=== PATIENT | male | born 1980 | race Caucasian/White ===

== ENCOUNTER 2017-05-30 18:49 | Emergency (ER) | payer SELFPAY ==
[2017-05-30 18:58] VITALS: BP 153/106; PULSE 113; TEMP 98.3; BMI 30.7
--- NOTE | 2017-05-30 18:59 | PDOC ---
Rapid Medical Evaluation Time Seen by Provider: 05/30/17 18:54 Medical Evaluation: I have performed a brief in-person evaluation of this patient. The patient presents with a chief complaint of: sore throat x 3 days. tactile fever yesterday Pertinent physical exam findings: b/l erythematous tonsils with b/l exudate. I have ordered the following: Will send rx for PenVK to his pharmacy. Instructed him to take the entire 10 day course. Also suggested he gargle with warm salt water and take Motrin for pain. The patient will proceed to the ED for further evaluation. Discharge Disposition - Diagnosis Strep pharyngitis - Discharge Dispostion Disposition: HOME Condition at time of disposition: Good - Referrals - Patient Instructions Printed Discharge Instructions: DI for Strep Throat Print Language: [place] - Post Discharge Activity
== END 2017-05-30 19:15 | disposition home or self-care (01) ==
LOC: JERFT 18:49
DX: J02.0 Streptococcal pharyngitis (principal); B95.5 Unspecified streptococcus as the cause of diseases classified elsewhere
CPT/HCPCS: 99281-25

== ENCOUNTER 2017-10-17 16:47 | Emergency (ER) | payer OTHER ==
[2017-10-17 16:53] VITALS: BP 147/79; PULSE 93; TEMP 98.5; BMI 32.5
--- NOTE | 2017-10-17 16:54 | PDOC ---
Rapid Medical Evaluation Time Seen by Provider: 10/17/17 16:51 Medical Evaluation: Allergies Allergy/AdvReac Type Severity Reaction Status Date / Time No Known Allergies Allergy Verified 05/30/17 18:58 10/17/17 16:51 I have performed a brief in-person evaluation of this patient. The patient presents with a chief complaint of: cough w/ pleuritic CP and congestion x 4 days. No f/c. No pmhx, Non smoker, no illicit drugs Pertinent physical exam findings:stable w/ clear chest/lungs I have ordered the following:cxr The patient will proceed to the ED for further evaluation. Discharge Disposition - Diagnosis Cough - Referrals - Patient Instructions - Post Discharge Activity
[2017-10-17] MEDS: ALBUTEROL SO4 2.5/IPRATROPIUM 0.5 INH SOL 3 ML VIAL.NEB. NEB SCH ×4 (17:36→18:40)
--- NOTE | 2017-10-17 17:39 | PDOC ---
History of Present Illness - General Chief Complaint: Cold Symptoms Stated Complaint: CHEST PAIN/ COLD SYMPTOMS Time Seen by Provider: 10/17/17 16:51 - History of Present Illness Initial Comments: 37-year-old male with nonproductive cough 3 days. Subjective fever at home. No past medical history no medical problems NO KNOWN DRUG ALLERGIES. He also has associated chest tightness with coughing 10/17/17 17:36 Past History - Past Medical History Allergies/Adverse Reactions: Allergies Allergy/AdvReac Type Severity Reaction Status Date / Time No Known Allergies Allergy Verified 10/17/17 16:53 Home Medications: Ambulatory Orders Albuterol Sulfate Inhaler - [Ventolin HFA Inhaler -] 1 - 2 inh PO Q4H #1 inhaler 10/17/17 Azithromycin [Zithromax -] 250 mg PO DAILY #8 tablet 10/17/17 Guaifenesin [Robitussin] 5 ml PO HS #30 ml 10/17/17 COPD: No - Suicide/Smoking/Psychosocial Hx Smoking History: Never smoked Information on smoking cessation initiated: No Hx Alcohol Use: No Drug/Substance Use Hx: No Review of Systems - Review of Systems Comments:: GENERAL/CONSTITUTIONAL: No fever or chills. No weakness. No weight change. HEAD, EYES, EARS, NOSE AND THROAT: No change in vision. No ear pain or discharge. No sore throat. CARDIOVASCULAR: + chest pain and shortness of breath. RESPIRATORY: + cough, no wheezing, or hemoptysis. GASTROINTESTINAL: No nausea, vomiting, diarrhea or constipation. No rectal bleeding. GENITOURINARY: No dysuria, frequency, or change in urination. MUSCULOSKELETAL: No joint or muscle swelling or pain. No neck or back pain. SKIN AND BREASTS: No rash or easy bruising. NEUROLOGIC: No headache, vertigo, loss of consciousness, or loss of sensation. PSYCHIATRIC: No depression or anxiety. ENDOCRINE: No increased thirst. No abnormal weight change. HEMATOLOGIC/LYMPHATIC: No anemia, easy bleeding, or history of blood clots. ALLERGIC/IMMUNOLOGIC: No hives or skin allergy. No latex allergy. 10/17/17 17:37 *Physical Exam - Vital Signs Last Vital Signs Temp Pulse Resp BP Pulse Ox 98.5 F 93 H 20 147/79 98 10/17/17 16:51 10/17/17 16:51 10/17/17 16:51 10/17/17 16:51 10/17/17 16:51 - Physical Exam Comments: GENERAL: The patient is awake, alert, and fully oriented, in no acute distress. HEAD: Normal with no signs of trauma. EYES: Pupils equal, round and reactive to light, extraocular movements intact, sclera anicteric, conjunctiva clear. ENT: Ears normal, nares patent, oropharynx clear without exudates. Moist mucous membranes. NECK: Normal range of motion, supple without lymphadenopathy, JVD, or masses. LUNGS: He has coarse rhonchi and wheezing in both lung mcneill. HEART: Regular rate and rhythm, normal S1 and S2 without murmur, rub or gallop. ABDOMEN: Soft, nontender, normoactive bowel sounds. No guarding, no rebound. No masses. EXTREMITIES: Normal range of motion, no edema. No clubbing or cyanosis. No cords, erythema, or tenderness. NEUROLOGICAL: Cranial nerves II through XII grossly intact. Normal speech, normal gait. PSYCH: Normal mood, normal affect. SKIN: Warm, Dry, normal turgor, no rashes or lesions noted. 10/17/17 17:38 Medical Decision Making - Medical Decision Making 37-year-old male with most likely bronchitis with an asthma component. I will give him DuoNeb is an steroids and have him follow-up with his PCP this may be viral versus ALLERGIC. 10/17/17 17:38 10/17/17 19:00 After the fourth DuoNeb treatment his wheezing has resolved. He does have some mild rhonchi at the left base. My plan is to treat him for asthma. He is gotten steroid here I will send him home with the pump, cough syrup, as well as a Z- Sincere with close follow-up. He does not have a primary care I will recommend one. *DC/Admit/Observation/Transfer Diagnosis at time of Disposition: Cough - Discharge Dispostion Disposition: HOME Condition at time of disposition: Improved Decision to Admit order: No - Referrals Referrals: Greg Wolfe MD [Staff Physician] - - Patient Instructions Printed Discharge Instructions: DI for Acute Bronchitis, DI for Asthma -- Adult , Asthma -- Adult Additional Instructions: Return to the emergency room if your symptoms worsen or go unresolved prior to follow-up with the primary care physician I recommended for you. Finish all the antibiotics as prescribed. Take the cough syrup at night prior to bedtime. And the albuterol pump if you feel short of breath or you start to wheeze. He was given a dose of steroids in the emergency room which should help your breathing. Print Language: [place]AL[place] - Post Discharge Activity
[2017-10-17] MEDS ORDERED: DEXAMETHASONE 4 MG TABLET (FP) PO ONE (17:45)
[2017-10-17] MEDS ORDERED: ALBUTEROL SO4 2.5/IPRATROPIUM 0.5 INH SOL 3 ML VIAL.NEB. NEB ONE ×3 (17:45→18:35)
[2017-10-17] MEDS ORDERED: DEXAMETHASONE SOD PHOSPHATE 10 MG/1 ML VIAL ONE (17:48)
== END 2017-10-17 19:11 | disposition home or self-care (01) ==
LOC: JERFT 16:47
PROC: 3E0F7GC Introduction of Other Therapeutic Substance into Respiratory Tract, Via Natural or Artificial Opening (ICD-10-PCS; principal; 2017-10-17)
DX: R05 Cough (principal)
CPT/HCPCS: 71046-TC-FY; 99281-25; J7620

== ENCOUNTER 2018-07-06 18:05 | Emergency (ER) | payer OTHER ==
[2018-07-06 18:09] VITALS: BP 144/96; PULSE 87; TEMP 98.4; BMI 29.4
[2018-07-06] MEDS ORDERED: DEXAMETHASONE LIQUID 0.5 MG/5 ML 240 ML BULK BOTTLE PO ONE (18:34)
[2018-07-06] MEDS ORDERED: DEXAMETHASONE SOD PHOSPHATE 10 MG/1 ML VIAL ONE (18:36)
--- NOTE | 2018-07-06 18:37 | PDOC ---
History of Present Illness - General Chief Complaint: Respiratory Stated Complaint: COLD SYMPTOMS Time Seen by Provider: 07/06/18 18:30 - History of Present Illness Initial Comments: 07/06/18 18:36 37-year-old male presents for evaluation of sore throat 3 days with difficulty swallowing and drinking Past History - Past Medical History Allergies/Adverse Reactions: Allergies Allergy/AdvReac Type Severity Reaction Status Date / Time No Known Allergies Allergy Verified 07/06/18 18:09 Home Medications: Ambulatory Orders NK [No Known Home Medication] 07/06/18 COPD: No - Suicide/Smoking/Psychosocial Hx Smoking History: Never smoked Hx Alcohol Use: No Drug/Substance Use Hx: No Review of Systems - Review of Systems Constitutional: No: Fever HEENTM: Yes: Throat Pain *Physical Exam - Vital Signs Last Vital Signs Temp Pulse Resp BP Pulse Ox 98.4 F 87 18 144/96 96 07/06/18 18:07 07/06/18 18:07 07/06/18 18:07 07/06/18 18:07 07/06/18 18:07 - Physical Exam Comments: 07/06/18 18:37 HEAD: NC/AT EYES: Conjuntiva clear Ears: Canals and TM's normal NOSE: No d/c THROAT: Moist mucous membrances, oral pharanx erythematous, uvula midline NECK: Supple without adenopathy CARDIAC: S1 S2 LUNGS: CTA Full and Equal breath sounds ABDOMEN: Soft NT ND MS: Full ROM in all joints without edema NEUROLOGIC: No gross sensory or motor deficits, NVID SKIN: Normal color and temperature no lesions or rashes Moderate Sedation - Procedure Monitoring Vital Signs: Procedure Monitoring Vital Signs Temperature 98.4 F 07/06/18 18:07 Pulse Rate 87 07/06/18 18:07 Respiratory Rate 18 07/06/18 18:07 Blood Pressure 144/96 07/06/18 18:07 O2 Sat by Pulse Oximetry (%) 96 07/06/18 18:07 Medical Decision Making - Medical Decision Making 07/06/18 18:59 Will treat based on symptoms and exam as well as history *DC/Admit/Observation/Transfer Diagnosis at time of Disposition: Strep pharyngitis - Discharge Dispostion Disposition: HOME Condition at time of disposition: Stable Decision to Admit order: No - Referrals Referrals: Ross Schmid MD [Non Staff, Medical] - - Patient Instructions Printed Discharge Instructions: DI for Strep Throat, Strep Throat Additional Instructions: Return to the emergency room should symptoms worsen or go unresolved. Based on her history and symptoms as well as her exam it appears you have strep throat although your rapid strep was negative. Return to the emergency room should symptoms worsen or go unresolved follow-up with internal medicine one to 2 days for further evaluation and treatment options. Avoid Advil Motrin Aleve or ibuprofen he may take Tylenol if you need for pain. Warm salt water gargles 5-6 times a day will help with your throat pain. - Post Discharge Activity
[2018-07-06] MEDS ORDERED: PENICILLIN G BENZATHINE 1,200,000 UNIT/2 ML PFS IM ONE (18:58)
[2018-07-06] MEDS ORDERED: PENICILLIN G BENZATHINE 2,400,000 UNIT/4 ML PFS ONE (19:01)
== END 2018-07-06 19:40 | disposition home or self-care (01) ==
LOC: JERFT 18:05
DX: J02.0 Streptococcal pharyngitis (principal); B95.5 Unspecified streptococcus as the cause of diseases classified elsewhere
CPT/HCPCS: 87070; 87077; 87880; 96372; 99281-25

== ENCOUNTER 2020-06-03 20:45 | Inpatient (IN) | payer OTHER ==
[2020-06-03] MEDS ORDERED: SODIUM CHLORIDE 0.9% 500 ML INFUS.BAG IV ONE (22:58)
[2020-06-03] MEDS ORDERED: ACETAMINOPHEN 1000 MG/100 ML VIAL (NON FORMULARY) IVPB ONE (22:58)
[2020-06-03] MEDS ORDERED: AZITHROMYCIN IVPB 500 MG in DEXTROSE 5%-WATER - 250 ML IVPB ONE (23:53)
[2020-06-03] MEDS ORDERED: CEFTRIAXONE 1,000 MG in DEXTROSE 5%-WATER - 50 ML IVPB ONE (23:53)
[2020-06-03 23:54] LABS: BASO % 0.2 % (0-2.0); HEMATOCRIT 44.7 % (35.4-49); HEMOGLOBIN 15.2 GM/dL (11.7-16.9); LYMPH % 19.8 % (8-40); MCH 30.9 pg (25.7-33.7); MCHC 33.9 g/dl (32.0-35.9); MEAN CELL VOLUME 91.1 fl (80-96); MEAN PLT VOLUME 9.4 fl (7.5-11.1); MONO % 7.1 % (3.8-10.2); NEUT % 72.9 % (42.8-82.8); PLATELET COUNT 247 K/MM3 (134-434); RBC 4.91 M/mm3 (4.00-5.60); RDW 13.5 % (11.9-15.9); WHITE BLOOD COUNT 6.6 K/mm3 (4.0-10.0)
[2020-06-04] LABS: CHLORIDE 102 mmol/L (98-107); INR 1.12 (0.83-1.09); POTASSIUM 4.7 mmol/L (3.5-5.1); PROTHROMBIN TIME (PATIENT) 13.5 SEC (9.7-13.0); SODIUM 138 mmol/L (136-145)
[2020-06-04 00:02] LABS: ACTIVATED PTT 37.7 SECONDS (25.2-36.5); CALCIUM 8.2 mg/dL (8.5-10.1)
[2020-06-04 00:03] LABS: ALBUMIN 3.6 g/dl (3.4-5.0); ANION GAP 8 MMOL/L (8-16); BLOOD UREA NITROGEN 10.6 mg/dL (7-18); CO2 28 mmol/L (21-32); GLUCOSE,RANDOM 108 mg/dL (74-106)
[2020-06-04 00:04] LABS: BILIRUBIN,DIRECT 0.1 mg/dL (0.0-0.2)
[2020-06-04 00:06] LABS: SGOT/AST 27 U/L (15-37); SGPT/ALT 28 U/L (13-61)
[2020-06-04 00:07] LABS: BILIRUBIN,TOTAL 0.3 mg/dL (0.2-1); TOT PROT 7.9 g/dl (6.4-8.2)
[2020-06-04 00:08] LABS: ALK PHOS 93 U/L (45-117)
[2020-06-04] MEDS ORDERED: AZITHROMYCIN IVPB 500 MG/250 ML BAG IVPB ONE (00:30)
[2020-06-04] MEDS ORDERED: ACETAMINOPHEN INJECTION 100 ML IVPB ONE (00:30)
[2020-06-04] MEDS ORDERED: CEFTRIAXONE 1 GM/50 ML BAG ONE (00:30)
[2020-06-04] MEDS ORDERED: METOCLOPRAMIDE HCL INJECTION 10 MG/2 ML VIAL IVPB ONE (00:35)
[2020-06-04] MEDS ORDERED: METOCLOPRAMIDE HCL INJECTION 10 MG/2 ML VIAL ONE (01:00)
[2020-06-04] MEDS ORDERED: DEXAMETHASONE SOD PHOSPHATE 4 MG/1 ML VIAL IVPUSH ONE (01:46)
[2020-06-04] MEDS ORDERED: DEXAMETHASONE SOD PHOSPHATE 10 MG/1 ML VIAL ONE (02:21)
[2020-06-04 02:57] LABS: EPI CELLS 8 /uL (0-25.1); HYALINE CASTS 9 /uL (0-3.1); URINE APPEARANCE TURBID; URINE BACTERIA 170 /uL (0-1359); URINE BILIRUBIN NEGATIVE (NEGATIVE); URINE COLOR YELLOW; URINE GLUCOSE (UA) NEGATIVE (NEGATIVE); URINE KETONE 3+ (NEGATIVE); URINE LEUK ESTERASE NEGATIVE (NEGATIVE); URINE NITRITE NEGATIVE (NEGATIVE); URINE PROTEIN 2+ (NEGATIVE); URINE RBC 4 /uL (0-23.9); URINE UROBILINOGEN 0.2 mg/dL (0.2-1.0); URINE WBC 2 /uL (0-25.8)
[2020-06-04] MEDS: MELATONIN 5 MG TABLETS PO PRN (05:02)
[2020-06-04 07:16] LABS: BASO % 0.3 % (0-2.0); HEMATOCRIT 43.3 % (35.4-49); HEMOGLOBIN 14.6 GM/dL (11.7-16.9); LYMPH % 15.8 % (8-40); MCH 30.7 pg (25.7-33.7); MCHC 33.6 g/dl (32.0-35.9); MEAN CELL VOLUME 91.4 fl (80-96); MEAN PLT VOLUME 9.8 fl (7.5-11.1); MONO % 4.1 % (3.8-10.2); NEUT % 79.8 % (42.8-82.8); PLATELET COUNT 244 K/MM3 (134-434); RBC 4.74 M/mm3 (4.00-5.60); RDW 13.2 % (11.9-15.9); WHITE BLOOD COUNT 6.1 K/mm3 (4.0-10.0)
[2020-06-04 07:43] LABS: POTASSIUM 4.9 mmol/L (3.5-5.1)
[2020-06-04 07:48] LABS: CALCIUM 7.8 mg/dL (8.5-10.1)
[2020-06-04 07:49] LABS: ALBUMIN 3.4 g/dl (3.4-5.0); BLOOD UREA NITROGEN 10.6 mg/dL (7-18)
[2020-06-04 07:52] LABS: CREATININE 0.9 mg/dL (0.55-1.3)
[2020-06-04 07:53] LABS: BILIRUBIN,TOTAL 0.4 mg/dL (0.2-1); TOT PROT 7.5 g/dl (6.4-8.2)
[2020-06-04 09:03] LABS: MAGNESIUM 2.5 mg/dL (1.8-2.4)
[2020-06-04] MEDS ORDERED: ASCORBIC ACID 500 MG TABLET (FP) ONE ×2 (10:11→23:38)
[2020-06-04] MEDS ORDERED: ENOXAPARIN NA (PORCINE) 40 MG/0.4 ML DISP.SYRIN SQ ONE (10:11)
[2020-06-04] MEDS ORDERED: ZINC SULFATE 220 MG CAPSULE (FP) ONE (10:11)
[2020-06-04] MEDS ORDERED: CHOLECALCIFEROL (VIT D3) 1,000 UNIT (25 MCG) TABLET ONE (10:11)
[2020-06-04] MEDS: ZINC SULFATE 220 MG CAPSULE (FP) PO SCH (10:30)
[2020-06-04] MEDS: ENOXAPARIN NA (PORCINE) 40 MG/0.4 ML DISP.SYRIN SQ SCH (10:30)
[2020-06-04] MEDS: ASCORBIC ACID 500 MG TABLET (FP) PO SCH ×2 (10:31→23:43)
[2020-06-04] MEDS: CHOLECALCIFEROL (VIT D3) 1,000 UNIT (25 MCG) TABLET PO SCH (10:31)
[2020-06-04] MEDS ORDERED: ACETAMINOPHEN 325 MG TABLET (FP) ONE ×2 (17:07→23:38)
[2020-06-04] MEDS: ACETAMINOPHEN 325 MG TABLET (FP) PO PRN ×2 (17:12→23:43)
[2020-06-05] MEDS: MELATONIN 5 MG TABLETS PO PRN (04:16)
[2020-06-05] MEDS: ACETAMINOPHEN 325 MG TABLET (FP) PO PRN ×3 (04:23→22:26)
[2020-06-05 08:26] LABS: BASO % 0.3 % (0-2.0); HEMATOCRIT 40.3 % (35.4-49); HEMOGLOBIN 13.9 GM/dL (11.7-16.9); LYMPH % 20.4 % (8-40); MCH 30.9 pg (25.7-33.7); MCHC 34.6 g/dl (32.0-35.9); MEAN CELL VOLUME 89.5 fl (80-96); MEAN PLT VOLUME 9.4 fl (7.5-11.1); MONO % 7.2 % (3.8-10.2); NEUT % 72.1 % (42.8-82.8); PLATELET COUNT 271 K/MM3 (134-434); RDW 13.2 % (11.9-15.9); WHITE BLOOD COUNT 8.1 K/mm3 (4.0-10.0)
[2020-06-05 08:27] LABS: POTASSIUM 4.1 mmol/L (3.5-5.1)
[2020-06-05 08:31] LABS: ALBUMIN 3.1 g/dl (3.4-5.0); BLOOD UREA NITROGEN 15.9 mg/dL (7-18); CALCIUM 8.2 mg/dL (8.5-10.1)
[2020-06-05 08:36] LABS: BILIRUBIN,TOTAL 1.4 mg/dL (0.2-1); TOT PROT 6.9 g/dl (6.4-8.2)
[2020-06-05] MEDS ORDERED: DEXTROSE 5%-WATER - 50 ML IVPB ONE (09:19)
[2020-06-05] MEDS ORDERED: cefTRIAXone SODIUM 1 GM VIAL ONE (09:19)
[2020-06-05] MEDS: CEFTRIAXONE 1 GM in DEXTROSE 5%-WATER - 50 ML IVPB SCH (09:27)
[2020-06-05] MEDS: ENOXAPARIN NA (PORCINE) 40 MG/0.4 ML DISP.SYRIN SQ SCH (09:28)
[2020-06-05] MEDS: ASCORBIC ACID 500 MG TABLET (FP) PO SCH ×3 (09:30→21:01)
[2020-06-05] MEDS: CHOLECALCIFEROL (VIT D3) 1,000 UNIT (25 MCG) TABLET PO SCH (09:30)
[2020-06-05] MEDS: ZINC SULFATE 220 MG CAPSULE (FP) PO SCH (09:30)
[2020-06-05] MEDS: DEXAMETHASONE SOD PHOSPHATE 4 MG/1 ML VIAL IVPUSH SCH (09:31)
[2020-06-05] MEDS ORDERED: AZITHROMYCIN IVPB 500 MG in DEXTROSE 5%-WATER - 250 ML IVPB SCH (10:00)
[2020-06-05 13:24] LABS: EPI CELLS 18 /uL (0-25.1); HYALINE CASTS 8 /uL (0-3.1); URINE APPEARANCE CLEAR; URINE BACTERIA 66 /uL (0-1359); URINE BILIRUBIN NEGATIVE (NEGATIVE); URINE COLOR YELLOW; URINE GLUCOSE (UA) NEGATIVE (NEGATIVE); URINE KETONE 3+ (NEGATIVE); URINE LEUK ESTERASE NEGATIVE (NEGATIVE); URINE NITRITE NEGATIVE (NEGATIVE); URINE PROTEIN 2+ (NEGATIVE); URINE RBC 13 /uL (0-23.9); URINE UROBILINOGEN 0.2 mg/dL (0.2-1.0); URINE WBC 6 /uL (0-25.8)
[2020-06-05] MEDS ORDERED: REMDESIVIR 200 MG in SODIUM CHLORIDE 210 ML IVPB ONE (15:42)
[2020-06-05] MEDS: FAMOTIDINE 20 MG TABLET PO SCH ×2 (20:49→21:00)
[2020-06-05] MEDS: BUDESONIDE/FORMETEROL FUMARATE 160/4.5 mcg INHALER IH SCH (21:01)
[2020-06-06] MEDS: MELATONIN 5 MG TABLETS PO PRN ×2 (00:17→22:13)
[2020-06-06] MEDS: ACETAMINOPHEN 325 MG TABLET (FP) PO PRN (06:40)
[2020-06-06] MEDS ORDERED: DEXTROSE 5%-WATER - 50 ML IVPB ONE (09:03)
[2020-06-06] MEDS ORDERED: cefTRIAXone SODIUM 1 GM VIAL ONE (09:03)
[2020-06-06] MEDS: CHOLECALCIFEROL (VIT D3) 1,000 UNIT (25 MCG) TABLET PO SCH (09:23)
[2020-06-06 09:24] LABS: ALBUMIN 2.8 g/dl (3.4-5.0); CALCIUM 8.1 mg/dL (8.5-10.1)
[2020-06-06] MEDS: ASCORBIC ACID 500 MG TABLET (FP) PO SCH ×2 (09:24→22:08)
[2020-06-06] MEDS: FAMOTIDINE 20 MG TABLET PO SCH ×2 (09:24→22:08)
[2020-06-06] MEDS: ZINC SULFATE 220 MG CAPSULE (FP) PO SCH (09:24)
[2020-06-06] MEDS: ENOXAPARIN NA (PORCINE) 40 MG/0.4 ML DISP.SYRIN SQ SCH (09:24)
[2020-06-06] MEDS: DEXAMETHASONE SOD PHOSPHATE 4 MG/1 ML VIAL IVPUSH SCH (09:24)
[2020-06-06 09:25] LABS: BLOOD UREA NITROGEN 12.9 mg/dL (7-18); MAGNESIUM 2.5 mg/dL (1.8-2.4)
[2020-06-06] MEDS: CEFTRIAXONE 1 GM in DEXTROSE 5%-WATER - 50 ML IVPB SCH (09:25)
[2020-06-06 09:28] LABS: CREATININE 0.9 mg/dL (0.55-1.3)
[2020-06-06] MEDS: BUDESONIDE/FORMETEROL FUMARATE 160/4.5 mcg INHALER IH SCH ×2 (09:28→22:08)
[2020-06-06 09:29] LABS: BILIRUBIN,TOTAL 0.3 mg/dL (0.2-1); TOT PROT 6.9 g/dl (6.4-8.2)
[2020-06-06] MEDS: AZITHROMYCIN IVPB 500 MG/250 ML BAG IVPB SCH (15:35)
[2020-06-06] MEDS: REMDESIVIR 100 MG in SODIUM CHLORIDE 230 ML IVPB SCH (16:42)
[2020-06-07] MEDS: ACETAMINOPHEN 325 MG TABLET (FP) PO PRN (00:13)
[2020-06-07] MEDS ORDERED: PT OWN MED DRAWER 7, Y5N ONE (09:55)
[2020-06-07] MEDS ORDERED: cefTRIAXone SODIUM 1 GM VIAL ONE (09:55)
[2020-06-07] MEDS ORDERED: DEXTROSE 5%-WATER - 50 ML IVPB ONE (09:55)
[2020-06-07] MEDS: FAMOTIDINE 20 MG TABLET PO SCH ×2 (09:59→22:21)
[2020-06-07] MEDS: ASCORBIC ACID 500 MG TABLET (FP) PO SCH ×2 (09:59→22:21)
[2020-06-07] MEDS: ZINC SULFATE 220 MG CAPSULE (FP) PO SCH (09:59)
[2020-06-07] MEDS: CHOLECALCIFEROL (VIT D3) 1,000 UNIT (25 MCG) TABLET PO SCH (10:00)
[2020-06-07] MEDS: CEFTRIAXONE 1 GM in DEXTROSE 5%-WATER - 50 ML IVPB SCH (10:00)
[2020-06-07] MEDS: DEXAMETHASONE SOD PHOSPHATE 4 MG/1 ML VIAL IVPUSH SCH (10:01)
[2020-06-07] MEDS: ENOXAPARIN NA (PORCINE) 40 MG/0.4 ML DISP.SYRIN SQ SCH (10:03)
[2020-06-07] MEDS: BUDESONIDE/FORMETEROL FUMARATE 160/4.5 mcg INHALER IH SCH ×2 (10:12→22:22)
[2020-06-07] MEDS: AZITHROMYCIN IVPB 500 MG/250 ML BAG IVPB SCH (10:34)
[2020-06-07] MEDS: REMDESIVIR 100 MG in SODIUM CHLORIDE 230 ML IVPB SCH (16:39)
[2020-06-08 09:27] LABS: ALBUMIN 2.9 g/dl (3.4-5.0); BLOOD UREA NITROGEN 16.3 mg/dL (7-18); CALCIUM 8.5 mg/dL (8.5-10.1)
[2020-06-08 09:28] LABS: MAGNESIUM 2.4 mg/dL (1.8-2.4)
[2020-06-08 09:30] LABS: CREATININE 0.8 mg/dL (0.55-1.3); PHOSPHOROUS 3.1 mg/dL (2.5-4.9)
[2020-06-08 09:32] LABS: BILIRUBIN,TOTAL 0.9 mg/dL (0.2-1); TOT PROT 6.9 g/dl (6.4-8.2)
[2020-06-08] MEDS ORDERED: cefTRIAXone SODIUM 1 GM VIAL ONE (09:50)
[2020-06-08] MEDS ORDERED: PT OWN MED DRAWER 7, Y5N ONE (09:50)
[2020-06-08] MEDS ORDERED: DEXTROSE 5%-WATER - 50 ML IVPB ONE (09:51)
[2020-06-08 09:55] LABS: POTASSIUM 4.1 mmol/L (3.5-5.1)
[2020-06-08] MEDS: FAMOTIDINE 20 MG TABLET PO SCH ×2 (09:55→21:12)
[2020-06-08] MEDS: ZINC SULFATE 220 MG CAPSULE (FP) PO SCH (09:55)
[2020-06-08] MEDS: CHOLECALCIFEROL (VIT D3) 1,000 UNIT (25 MCG) TABLET PO SCH (09:56)
[2020-06-08] MEDS: ASCORBIC ACID 500 MG TABLET (FP) PO SCH ×2 (09:56→21:12)
[2020-06-08] MEDS: CEFTRIAXONE 1 GM in DEXTROSE 5%-WATER - 50 ML IVPB SCH (09:57)
[2020-06-08] MEDS: BUDESONIDE/FORMETEROL FUMARATE 160/4.5 mcg INHALER IH SCH ×2 (09:57→21:13)
[2020-06-08] MEDS: DEXAMETHASONE SOD PHOSPHATE 4 MG/1 ML VIAL IVPUSH SCH (09:58)
[2020-06-08] MEDS: ENOXAPARIN NA (PORCINE) 40 MG/0.4 ML DISP.SYRIN SQ SCH (09:59)
[2020-06-08 10:08] LABS: ERYTHROCYTE SEDIMENTATION RATE 81 mm/hr (0-10)
[2020-06-08 10:13] LABS: HEMATOCRIT 40.9 % (35.4-49); HEMOGLOBIN 14.1 GM/dL (11.7-16.9); MCH 30.8 pg (25.7-33.7); MCHC 34.4 g/dl (32.0-35.9); MEAN CELL VOLUME 89.6 fl (80-96); PLATELET COUNT 475 K/MM3 (134-434); RBC 4.56 M/mm3 (4.00-5.60); RDW 13.3 % (11.9-15.9); WHITE BLOOD COUNT 12.1 K/mm3 (4.0-10.0)
[2020-06-08] MEDS: AZITHROMYCIN IVPB 500 MG/250 ML BAG IVPB SCH (10:42)
[2020-06-08] MEDS: REMDESIVIR 100 MG in SODIUM CHLORIDE 230 ML IVPB SCH (16:25)
[2020-06-09 08:44] LABS: HEMATOCRIT 39.3 % (35.4-49); HEMOGLOBIN 13.3 GM/dL (11.7-16.9); MCH 30.5 pg (25.7-33.7); MCHC 33.8 g/dl (32.0-35.9); MEAN CELL VOLUME 90.2 fl (80-96); MEAN PLT VOLUME 8.6 fl (7.5-11.1); PLATELET COUNT 522 K/MM3 (134-434); RBC 4.36 M/mm3 (4.00-5.60); RDW 13.3 % (11.9-15.9); WHITE BLOOD COUNT 13.2 K/mm3 (4.0-10.0)
[2020-06-09 08:54] LABS: POTASSIUM 4.3 mmol/L (3.5-5.1)
[2020-06-09 08:56] LABS: CALCIUM 8.3 mg/dL (8.5-10.1)
[2020-06-09 08:57] LABS: ALBUMIN 2.7 g/dl (3.4-5.0); BLOOD UREA NITROGEN 12.1 mg/dL (7-18); MAGNESIUM 2.3 mg/dL (1.8-2.4)
[2020-06-09 09:00] LABS: CREATININE 0.8 mg/dL (0.55-1.3); PHOSPHOROUS 2.8 mg/dL (2.5-4.9)
[2020-06-09 09:01] LABS: BILIRUBIN,TOTAL 0.8 mg/dL (0.2-1); TOT PROT 6.6 g/dl (6.4-8.2)
[2020-06-09] MEDS ORDERED: PT OWN MED DRAWER 7, Y5N ONE (10:25)
[2020-06-09] MEDS ORDERED: DEXTROSE 5%-WATER - 50 ML IVPB ONE (10:25)
[2020-06-09] MEDS ORDERED: cefTRIAXone SODIUM 1 GM VIAL ONE (10:25)
[2020-06-09] MEDS: CEFTRIAXONE 1 GM in DEXTROSE 5%-WATER - 50 ML IVPB SCH (10:27)
[2020-06-09] MEDS: DEXAMETHASONE SOD PHOSPHATE 4 MG/1 ML VIAL IVPUSH SCH (10:27)
[2020-06-09] MEDS: ASCORBIC ACID 500 MG TABLET (FP) PO SCH ×2 (10:28→21:14)
[2020-06-09] MEDS: ZINC SULFATE 220 MG CAPSULE (FP) PO SCH (10:28)
[2020-06-09] MEDS: CHOLECALCIFEROL (VIT D3) 1,000 UNIT (25 MCG) TABLET PO SCH (10:28)
[2020-06-09] MEDS: FAMOTIDINE 20 MG TABLET PO SCH ×2 (10:28→21:14)
[2020-06-09] MEDS: ENOXAPARIN NA (PORCINE) 40 MG/0.4 ML DISP.SYRIN SQ SCH (10:28)
[2020-06-09] MEDS: BUDESONIDE/FORMETEROL FUMARATE 160/4.5 mcg INHALER IH SCH ×2 (10:33→21:14)
[2020-06-09] MEDS: AZITHROMYCIN IVPB 500 MG/250 ML BAG IVPB SCH (11:59)
[2020-06-09 12:06] LABS: ERYTHROCYTE SEDIMENTATION RATE 67 mm/hr (0-10)
[2020-06-09] MEDS: REMDESIVIR 100 MG in SODIUM CHLORIDE 230 ML IVPB SCH (15:53)
[2020-06-10] MEDS: ALBUTEROL SO4 HFA INHALER IH PRN (02:05)
[2020-06-10 08:24] LABS: HEMATOCRIT 39.7 % (35.4-49); HEMOGLOBIN 13.5 GM/dL (11.7-16.9); MCH 30.5 pg (25.7-33.7); MEAN CELL VOLUME 89.7 fl (80-96); MEAN PLT VOLUME 8.4 fl (7.5-11.1); PLATELET COUNT 616 K/MM3 (134-434); RBC 4.43 M/mm3 (4.00-5.60); RDW 13.6 % (11.9-15.9); WHITE BLOOD COUNT 15.9 K/mm3 (4.0-10.0)
[2020-06-10 08:41] LABS: POTASSIUM 4.3 mmol/L (3.5-5.1)
[2020-06-10 08:46] LABS: ALBUMIN 2.6 g/dl (3.4-5.0); BLOOD UREA NITROGEN 12.9 mg/dL (7-18); CALCIUM 8.4 mg/dL (8.5-10.1)
[2020-06-10 08:47] LABS: MAGNESIUM 2.3 mg/dL (1.8-2.4)
[2020-06-10 08:49] LABS: CREATININE 0.8 mg/dL (0.55-1.3)
[2020-06-10 08:52] LABS: TOT PROT 6.6 g/dl (6.4-8.2)
[2020-06-10 08:53] LABS: BILIRUBIN,TOTAL 0.6 mg/dL (0.2-1)
[2020-06-10] MEDS ORDERED: cefTRIAXone SODIUM 1 GM VIAL ONE (10:49)
[2020-06-10] MEDS ORDERED: DEXTROSE 5%-WATER - 50 ML IVPB ONE (10:49)
[2020-06-10] MEDS: CHOLECALCIFEROL (VIT D3) 1,000 UNIT (25 MCG) TABLET PO SCH (10:51)
[2020-06-10] MEDS: ZINC SULFATE 220 MG CAPSULE (FP) PO SCH (10:51)
[2020-06-10] MEDS: DEXAMETHASONE SOD PHOSPHATE 4 MG/1 ML VIAL IVPUSH SCH (10:52)
[2020-06-10] MEDS: BUDESONIDE/FORMETEROL FUMARATE 160/4.5 mcg INHALER IH SCH ×2 (10:52→21:51)
[2020-06-10] MEDS: CEFTRIAXONE 1 GM in DEXTROSE 5%-WATER - 50 ML IVPB SCH (10:52)
[2020-06-10] MEDS: FAMOTIDINE 20 MG TABLET PO SCH ×2 (10:52→21:51)
[2020-06-10] MEDS: ENOXAPARIN NA (PORCINE) 40 MG/0.4 ML DISP.SYRIN SQ SCH (10:52)
[2020-06-10] MEDS: ASCORBIC ACID 500 MG TABLET (FP) PO SCH ×2 (10:52→21:51)
[2020-06-10] MEDS: AZITHROMYCIN IVPB 500 MG/250 ML BAG IVPB SCH (11:47)
[2020-06-10 18:00] VITALS: BMI 34.1
[2020-06-10] MEDS: MELATONIN 5 MG TABLETS PO PRN (21:51)
[2020-06-11 08:57] LABS: HEMOGLOBIN 13.7 GM/dL (11.7-16.9); MCH 30.6 pg (25.7-33.7); MCHC 34.3 g/dl (32.0-35.9); MEAN CELL VOLUME 89.1 fl (80-96); MEAN PLT VOLUME 8.3 fl (7.5-11.1); PLATELET COUNT 698 K/MM3 (134-434); RBC 4.49 M/mm3 (4.00-5.60); RDW 13.1 % (11.9-15.9); WHITE BLOOD COUNT 17.9 K/mm3 (4.0-10.0)
[2020-06-11 09:17] LABS: POTASSIUM 4.1 mmol/L (3.5-5.1)
[2020-06-11 09:32] LABS: ALBUMIN 2.5 g/dl (3.4-5.0); BLOOD UREA NITROGEN 16.9 mg/dL (7-18); CALCIUM 8.4 mg/dL (8.5-10.1); MAGNESIUM 2.2 mg/dL (1.8-2.4)
[2020-06-11 09:35] LABS: CREATININE 0.8 mg/dL (0.55-1.3)
[2020-06-11 09:36] LABS: PHOSPHOROUS 3.1 mg/dL (2.5-4.9)
[2020-06-11 09:38] LABS: BILIRUBIN,TOTAL 0.7 mg/dL (0.2-1); TOT PROT 6.7 g/dl (6.4-8.2)
[2020-06-11 10:19] LABS: ERYTHROCYTE SEDIMENTATION RATE 84 mm/hr (0-10)
[2020-06-11] MEDS ORDERED: cefTRIAXone SODIUM 1 GM VIAL ONE (11:35)
[2020-06-11] MEDS ORDERED: DEXTROSE 5%-WATER - 50 ML IVPB ONE (11:35)
[2020-06-11] MEDS: CHOLECALCIFEROL (VIT D3) 1,000 UNIT (25 MCG) TABLET PO SCH (11:42)
[2020-06-11] MEDS: CEFTRIAXONE 1 GM in DEXTROSE 5%-WATER - 50 ML IVPB SCH (11:42)
[2020-06-11] MEDS: ENOXAPARIN NA (PORCINE) 40 MG/0.4 ML DISP.SYRIN SQ SCH (11:43)
[2020-06-11] MEDS: FAMOTIDINE 20 MG TABLET PO SCH ×2 (11:43→22:01)
[2020-06-11] MEDS: DEXAMETHASONE SOD PHOSPHATE 4 MG/1 ML VIAL IVPUSH SCH (11:43)
[2020-06-11] MEDS: ASCORBIC ACID 500 MG TABLET (FP) PO SCH ×2 (11:44→22:01)
[2020-06-11] MEDS: BUDESONIDE/FORMETEROL FUMARATE 160/4.5 mcg INHALER IH SCH ×2 (11:44→22:01)
[2020-06-11] MEDS: ZINC SULFATE 220 MG CAPSULE (FP) PO SCH (11:44)
[2020-06-11] MEDS: MELATONIN 5 MG TABLETS PO PRN (22:01)
[2020-06-12] MEDS ORDERED: DEXTROSE 5%-WATER - 50 ML IVPB ONE (09:04)
[2020-06-12] MEDS ORDERED: cefTRIAXone SODIUM 1 GM VIAL ONE (09:04)
[2020-06-12] MEDS: ENOXAPARIN NA (PORCINE) 40 MG/0.4 ML DISP.SYRIN SQ SCH (09:14)
[2020-06-12] MEDS: DEXAMETHASONE SOD PHOSPHATE 4 MG/1 ML VIAL IVPUSH SCH (09:14)
[2020-06-12] MEDS: FAMOTIDINE 20 MG TABLET PO SCH ×2 (09:15→21:42)
[2020-06-12] MEDS: ZINC SULFATE 220 MG CAPSULE (FP) PO SCH (09:15)
[2020-06-12] MEDS: CHOLECALCIFEROL (VIT D3) 1,000 UNIT (25 MCG) TABLET PO SCH (09:15)
[2020-06-12] MEDS: ASCORBIC ACID 500 MG TABLET (FP) PO SCH ×2 (09:15→21:42)
[2020-06-12] MEDS: BUDESONIDE/FORMETEROL FUMARATE 160/4.5 mcg INHALER IH SCH ×2 (09:16→21:43)
[2020-06-12 09:44] LABS: HEMATOCRIT 40.2 % (35.4-49); HEMOGLOBIN 13.5 GM/dL (11.7-16.9); MCH 30.3 pg (25.7-33.7); MCHC 33.5 g/dl (32.0-35.9); MEAN CELL VOLUME 90.4 fl (80-96); MEAN PLT VOLUME 8.3 fl (7.5-11.1); PLATELET COUNT 737 K/MM3 (134-434); RBC 4.45 M/mm3 (4.00-5.60); RDW 13.2 % (11.9-15.9); WHITE BLOOD COUNT 14.7 K/mm3 (4.0-10.0)
[2020-06-12 09:55] LABS: POTASSIUM 4.3 mmol/L (3.5-5.1)
[2020-06-12 10:02] LABS: ALBUMIN 2.4 g/dl (3.4-5.0); BLOOD UREA NITROGEN 14.9 mg/dL (7-18); CALCIUM 8.4 mg/dL (8.5-10.1); MAGNESIUM 2.3 mg/dL (1.8-2.4)
[2020-06-12 10:04] LABS: CREATININE 0.8 mg/dL (0.55-1.3); PHOSPHOROUS 3.9 mg/dL (2.5-4.9)
[2020-06-12 10:06] LABS: BILIRUBIN,TOTAL 0.3 mg/dL (0.2-1)
[2020-06-12 10:07] LABS: TOT PROT 6.4 g/dl (6.4-8.2)
[2020-06-12 10:57] LABS: ERYTHROCYTE SEDIMENTATION RATE 83 mm/hr (0-10)
[2020-06-12] MEDS: SODIUM CHLORIDE NASAL SPRAY 44 ML BOTTLE NS PRN (16:36)
[2020-06-12] MEDS: MELATONIN 5 MG TABLETS PO PRN (21:44)
[2020-06-13] MEDS: ASCORBIC ACID 500 MG TABLET (FP) PO SCH ×2 (09:40→22:20)
[2020-06-13] MEDS: FAMOTIDINE 20 MG TABLET PO SCH ×2 (09:40→22:20)
[2020-06-13] MEDS: CHOLECALCIFEROL (VIT D3) 1,000 UNIT (25 MCG) TABLET PO SCH (09:40)
[2020-06-13] MEDS: ENOXAPARIN NA (PORCINE) 40 MG/0.4 ML DISP.SYRIN SQ SCH (09:40)
[2020-06-13] MEDS: ZINC SULFATE 220 MG CAPSULE (FP) PO SCH (09:40)
[2020-06-13] MEDS: DEXAMETHASONE SOD PHOSPHATE 4 MG/1 ML VIAL IVPUSH SCH (09:40)
[2020-06-13] MEDS: BUDESONIDE/FORMETEROL FUMARATE 160/4.5 mcg INHALER IH SCH ×2 (09:41→22:24)
[2020-06-13] MEDS: MELATONIN 5 MG TABLETS PO PRN (22:20)
[2020-06-14] MEDS ORDERED: guaiFENesin 200 MG/10 ML 10 ML UNIT-DOSE CUPS PO ONE (06:57)
[2020-06-14] MEDS ORDERED: BENZOCAINE/MENTH/CETYLPYRD CL 1 EACH LOZENGE MM PRN (06:57)
[2020-06-14 09:59] LABS: HEMATOCRIT 39.8 % (35.4-49); HEMOGLOBIN 13.4 GM/dL (11.7-16.9); MCH 30.2 pg (25.7-33.7); MCHC 33.6 g/dl (32.0-35.9); MEAN CELL VOLUME 90.1 fl (80-96); MEAN PLT VOLUME 8.1 fl (7.5-11.1); PLATELET COUNT 774 K/MM3 (134-434); RBC 4.42 M/mm3 (4.00-5.60); RDW 13.3 % (11.9-15.9)
[2020-06-14] MEDS: DEXAMETHASONE SOD PHOSPHATE 4 MG/1 ML VIAL IVPUSH SCH (10:06)
[2020-06-14] MEDS: ASCORBIC ACID 500 MG TABLET (FP) PO SCH ×2 (10:07→21:09)
[2020-06-14] MEDS: CHOLECALCIFEROL (VIT D3) 1,000 UNIT (25 MCG) TABLET PO SCH (10:07)
[2020-06-14] MEDS: ZINC SULFATE 220 MG CAPSULE (FP) PO SCH (10:07)
[2020-06-14] MEDS: FAMOTIDINE 20 MG TABLET PO SCH ×2 (10:08→21:09)
[2020-06-14] MEDS: ENOXAPARIN NA (PORCINE) 40 MG/0.4 ML DISP.SYRIN SQ SCH (10:08)
[2020-06-14] MEDS: BUDESONIDE/FORMETEROL FUMARATE 160/4.5 mcg INHALER IH SCH ×2 (10:17→21:10)
[2020-06-14] MEDS: guaiFENesin 200 MG/10 ML 10 ML UNIT-DOSE CUPS PO PRN ×2 (14:48→21:10)
[2020-06-14] MEDS: ENOXAPARIN NA (PORCINE) 80 MG/0.8 ML DISP.SYRIN SQ SCH (21:08)
[2020-06-14] MEDS: MELATONIN 5 MG TABLETS PO PRN (21:10)
[2020-06-14] MEDS ORDERED: ENOXAPARIN NA (PORCINE) 100 MG/1 ML DISP.SYRIN SQ SCH (22:00)
[2020-06-15 09:13] LABS: HEMATOCRIT 39.4 % (35.4-49); HEMOGLOBIN 13.4 GM/dL (11.7-16.9); MCH 30.7 pg (25.7-33.7); MCHC 34.1 g/dl (32.0-35.9); MEAN CELL VOLUME 90.1 fl (80-96); MEAN PLT VOLUME 7.8 fl (7.5-11.1); PLATELET COUNT 798 K/MM3 (134-434); RBC 4.37 M/mm3 (4.00-5.60); RDW 13.5 % (11.9-15.9); WHITE BLOOD COUNT 18.8 K/mm3 (4.0-10.0)
[2020-06-15 09:43] LABS: POTASSIUM 4.1 mmol/L (3.5-5.1)
[2020-06-15 10:06] LABS: ALBUMIN 2.7 g/dl (3.4-5.0)
[2020-06-15 10:09] LABS: CREATININE 0.8 mg/dL (0.55-1.3)
[2020-06-15 10:10] LABS: BILIRUBIN,TOTAL 0.6 mg/dL (0.2-1)
[2020-06-15 10:11] LABS: TOT PROT 6.4 g/dl (6.4-8.2)
[2020-06-15 10:13] LABS: BLOOD UREA NITROGEN 13.7 mg/dL (7-18); CALCIUM 8.5 mg/dL (8.5-10.1)
[2020-06-15 10:21] LABS: PHOSPHOROUS 3.9 mg/dL (2.5-4.9)
[2020-06-15 11:06] LABS: ERYTHROCYTE SEDIMENTATION RATE 80 mm/hr (0-10)
[2020-06-15] MEDS: ENOXAPARIN NA (PORCINE) 80 MG/0.8 ML DISP.SYRIN SQ SCH ×2 (11:14→22:11)
[2020-06-15] MEDS: DEXAMETHASONE SOD PHOSPHATE 4 MG/1 ML VIAL IVPUSH SCH (11:15)
[2020-06-15] MEDS: ZINC SULFATE 220 MG CAPSULE (FP) PO SCH (11:15)
[2020-06-15] MEDS: FAMOTIDINE 20 MG TABLET PO SCH ×2 (11:15→22:10)
[2020-06-15] MEDS: BUDESONIDE/FORMETEROL FUMARATE 160/4.5 mcg INHALER IH SCH ×2 (11:16→22:44)
[2020-06-15] MEDS: ASCORBIC ACID 500 MG TABLET (FP) PO SCH ×2 (11:16→22:10)
[2020-06-15] MEDS: CHOLECALCIFEROL (VIT D3) 1,000 UNIT (25 MCG) TABLET PO SCH (11:16)
[2020-06-15] MEDS: guaiFENesin 200 MG/10 ML 10 ML UNIT-DOSE CUPS PO PRN ×2 (16:57→22:11)
[2020-06-15] MEDS: SODIUM CHLORIDE NASAL SPRAY 44 ML BOTTLE NS PRN (16:58)
[2020-06-15] MEDS: MELATONIN 5 MG TABLETS PO PRN (22:10)
[2020-06-15] MEDS: ACETAMINOPHEN 325 MG TABLET (FP) PO PRN (22:11)
[2020-06-16 08:49] LABS: HEMATOCRIT 40.4 % (35.4-49); HEMOGLOBIN 13.4 GM/dL (11.7-16.9); MCH 29.9 pg (25.7-33.7); MCHC 33.1 g/dl (32.0-35.9); MEAN CELL VOLUME 90.5 fl (80-96); PLATELET COUNT 767 K/MM3 (134-434); RBC 4.46 M/mm3 (4.00-5.60); RDW 13.6 % (11.9-15.9); WHITE BLOOD COUNT 22.1 K/mm3 (4.0-10.0)
[2020-06-16 09:15] LABS: POTASSIUM 4.1 mmol/L (3.5-5.1)
[2020-06-16 09:17] LABS: ALBUMIN 2.9 g/dl (3.4-5.0); BLOOD UREA NITROGEN 12.5 mg/dL (7-18); CALCIUM 8.9 mg/dL (8.5-10.1); MAGNESIUM 2.1 mg/dL (1.8-2.4)
[2020-06-16 09:20] LABS: CREATININE 0.8 mg/dL (0.55-1.3)
[2020-06-16 09:21] LABS: PHOSPHOROUS 3.9 mg/dL (2.5-4.9)
[2020-06-16 09:22] LABS: BILIRUBIN,TOTAL 0.4 mg/dL (0.2-1)
[2020-06-16] MEDS: ZINC SULFATE 220 MG CAPSULE (FP) PO SCH (09:29)
[2020-06-16] MEDS: ENOXAPARIN NA (PORCINE) 80 MG/0.8 ML DISP.SYRIN SQ SCH ×2 (09:29→21:32)
[2020-06-16] MEDS: ASCORBIC ACID 500 MG TABLET (FP) PO SCH ×2 (09:29→21:34)
[2020-06-16] MEDS: CHOLECALCIFEROL (VIT D3) 1,000 UNIT (25 MCG) TABLET PO SCH (09:29)
[2020-06-16] MEDS: DEXAMETHASONE SOD PHOSPHATE 4 MG/1 ML VIAL IVPUSH SCH (09:29)
[2020-06-16] MEDS: FAMOTIDINE 20 MG TABLET PO SCH ×2 (09:30→21:34)
[2020-06-16] MEDS: BUDESONIDE/FORMETEROL FUMARATE 160/4.5 mcg INHALER IH SCH ×2 (09:30→21:36)
[2020-06-16] MEDS: guaiFENesin 200 MG/10 ML 10 ML UNIT-DOSE CUPS PO PRN ×2 (09:37→21:35)
[2020-06-16 09:48] LABS: ERYTHROCYTE SEDIMENTATION RATE 67 mm/hr (0-10)
[2020-06-16] MEDS ORDERED: IBUPROFEN 200 MG TABLET PO PRN (12:19)
[2020-06-16] MEDS ORDERED: IBUPROFEN 200 MG TABLET PO ONE (12:40)
[2020-06-16] MEDS ORDERED: PT OWN MED DRAWER 7, Y5N ONE (13:17)
[2020-06-16] MEDS: MELATONIN 5 MG TABLETS PO PRN (21:34)
[2020-06-17 08:34] LABS: HEMATOCRIT 38.6 % (35.4-49); MCH 30.2 pg (25.7-33.7); MCHC 33.6 g/dl (32.0-35.9); PLATELET COUNT 736 K/MM3 (134-434); RBC 4.29 M/mm3 (4.00-5.60); RDW 13.4 % (11.9-15.9); WHITE BLOOD COUNT 21.2 K/mm3 (4.0-10.0)
[2020-06-17 08:48] LABS: BLOOD UREA NITROGEN 13.7 mg/dL (7-18)
[2020-06-17 08:51] LABS: BILIRUBIN,TOTAL 0.6 mg/dL (0.2-1); CREATININE 0.8 mg/dL (0.55-1.3); TOT PROT 6.7 g/dl (6.4-8.2)
[2020-06-17] MEDS ORDERED: PT OWN MED DRAWER 7, Y5N ONE (10:11)
[2020-06-17] MEDS: ALBUTEROL SO4 HFA INHALER IH PRN (10:19)
[2020-06-17] MEDS: CHOLECALCIFEROL (VIT D3) 1,000 UNIT (25 MCG) TABLET PO SCH (10:21)
[2020-06-17] MEDS: ZINC SULFATE 220 MG CAPSULE (FP) PO SCH (10:22)
[2020-06-17] MEDS: FAMOTIDINE 20 MG TABLET PO SCH ×2 (10:22→21:16)
[2020-06-17] MEDS: ASCORBIC ACID 500 MG TABLET (FP) PO SCH ×2 (10:22→21:17)
[2020-06-17] MEDS: ENOXAPARIN NA (PORCINE) 80 MG/0.8 ML DISP.SYRIN SQ SCH ×2 (10:22→21:17)
[2020-06-17] MEDS: DEXAMETHASONE SOD PHOSPHATE 4 MG/1 ML VIAL IVPUSH SCH (10:22)
[2020-06-17] MEDS: BUDESONIDE/FORMETEROL FUMARATE 160/4.5 mcg INHALER IH SCH ×2 (10:27→21:16)
[2020-06-17] MEDS: MELATONIN 5 MG TABLETS PO PRN (21:16)
[2020-06-18] MEDS ORDERED: PT OWN MED DRAWER 7, Y5N ONE (08:43)
[2020-06-18] MEDS: CHOLECALCIFEROL (VIT D3) 1,000 UNIT (25 MCG) TABLET PO SCH (09:18)
[2020-06-18] MEDS: ASCORBIC ACID 500 MG TABLET (FP) PO SCH ×2 (09:18→21:46)
[2020-06-18] MEDS: ZINC SULFATE 220 MG CAPSULE (FP) PO SCH (09:18)
[2020-06-18] MEDS: BUDESONIDE/FORMETEROL FUMARATE 160/4.5 mcg INHALER IH SCH ×2 (09:19→21:47)
[2020-06-18] MEDS: ENOXAPARIN NA (PORCINE) 80 MG/0.8 ML DISP.SYRIN SQ SCH ×2 (09:19→21:47)
[2020-06-18] MEDS: FAMOTIDINE 20 MG TABLET PO SCH ×2 (09:19→21:46)
[2020-06-18] MEDS: DEXAMETHASONE SOD PHOSPHATE 4 MG/1 ML VIAL IVPUSH SCH (09:19)
[2020-06-18 09:31] LABS: BASO % 0.9 % (0-2.0); EOS % 0.3 % (0-4.5); HEMATOCRIT 39.3 % (35.4-49); HEMOGLOBIN 13.4 GM/dL (11.7-16.9); LYMPH % 25.7 % (8-40); MCH 30.7 pg (25.7-33.7); MEAN CELL VOLUME 90.2 fl (80-96); MONO % 8.2 % (3.8-10.2); NEUT % 64.9 % (42.8-82.8); PLATELET COUNT 749 K/MM3 (134-434); RBC 4.36 M/mm3 (4.00-5.60); RDW 13.6 % (11.9-15.9); WHITE BLOOD COUNT 19.3 K/mm3 (4.0-10.0)
[2020-06-18 09:46] LABS: POTASSIUM 4.1 mmol/L (3.5-5.1)
[2020-06-18 09:51] LABS: CALCIUM 8.9 mg/dL (8.5-10.1)
[2020-06-18 09:54] LABS: CREATININE 0.8 mg/dL (0.55-1.3)
[2020-06-18 09:56] LABS: BILIRUBIN,TOTAL 0.4 mg/dL (0.2-1); TOT PROT 6.9 g/dl (6.4-8.2)
[2020-06-18] MEDS ORDERED: POLYETHYLENE GLYCOL 3350 119 GM BTL PO PRN (13:22)
[2020-06-18] MEDS: MELATONIN 5 MG TABLETS PO PRN (21:49)
[2020-06-18] MEDS: guaiFENesin 200 MG/10 ML 10 ML UNIT-DOSE CUPS PO PRN (21:52)
[2020-06-19 08:16] LABS: BASO % 0.4 % (0-2.0); EOS % 0.3 % (0-4.5); HEMATOCRIT 38.3 % (35.4-49); HEMOGLOBIN 13.3 GM/dL (11.7-16.9); MCHC 34.7 g/dl (32.0-35.9); MEAN CELL VOLUME 89.5 fl (80-96); MEAN PLT VOLUME 7.8 fl (7.5-11.1); MONO % 8.8 % (3.8-10.2); NEUT % 61.5 % (42.8-82.8); PLATELET COUNT 638 K/MM3 (134-434); RBC 4.28 M/mm3 (4.00-5.60); RDW 13.6 % (11.9-15.9); WHITE BLOOD COUNT 16.7 K/mm3 (4.0-10.0)
[2020-06-19 08:26] LABS: CHLORIDE 105 mmol/L (98-107); POTASSIUM 4.1 mmol/L (3.5-5.1); SODIUM 139 mmol/L (136-145)
[2020-06-19 08:52] LABS: CALCIUM 9.2 mg/dL (8.5-10.1)
[2020-06-19 08:53] LABS: ANION GAP 9 MMOL/L (8-16); BLOOD UREA NITROGEN 18.4 mg/dL (7-18); CO2 25 mmol/L (21-32); MAGNESIUM 2.2 mg/dL (1.8-2.4)
[2020-06-19 08:54] LABS: ALBUMIN 2.9 g/dl (3.4-5.0); GLUCOSE,RANDOM 125 mg/dL (74-106)
[2020-06-19 08:56] LABS: CREATININE 0.9 mg/dL (0.55-1.3); SGOT/AST 19 U/L (15-37); SGPT/ALT 58 U/L (13-61)
[2020-06-19 08:57] LABS: BILIRUBIN,TOTAL 0.6 mg/dL (0.2-1)
[2020-06-19 08:58] LABS: LDH 220 U/L (87-246); TOT PROT 6.4 g/dl (6.4-8.2)
[2020-06-19 08:59] LABS: ALK PHOS 78 U/L (45-117)
[2020-06-19] MEDS: ASCORBIC ACID 500 MG TABLET (FP) PO SCH ×2 (11:05→21:03)
[2020-06-19] MEDS: ENOXAPARIN NA (PORCINE) 80 MG/0.8 ML DISP.SYRIN SQ SCH ×2 (11:05→21:02)
[2020-06-19] MEDS: CHOLECALCIFEROL (VIT D3) 1,000 UNIT (25 MCG) TABLET PO SCH (11:05)
[2020-06-19] MEDS: guaiFENesin 200 MG/10 ML 10 ML UNIT-DOSE CUPS PO PRN ×2 (11:06→21:03)
[2020-06-19] MEDS: FAMOTIDINE 20 MG TABLET PO SCH ×2 (11:06→21:02)
[2020-06-19] MEDS: DEXAMETHASONE SOD PHOSPHATE 4 MG/1 ML VIAL IVPUSH SCH (11:06)
[2020-06-19] MEDS: BUDESONIDE/FORMETEROL FUMARATE 160/4.5 mcg INHALER IH SCH ×2 (11:06→21:02)
[2020-06-19] MEDS: ZINC SULFATE 220 MG CAPSULE (FP) PO SCH (11:06)
[2020-06-20 08:39] LABS: POTASSIUM 4.3 mmol/L (3.5-5.1)
[2020-06-20 08:41] LABS: HEMATOCRIT 37.7 % (35.4-49); MCH 31.1 pg (25.7-33.7); MCHC 34.4 g/dl (32.0-35.9); MEAN CELL VOLUME 90.6 fl (80-96); MEAN PLT VOLUME 8.2 fl (7.5-11.1); PLATELET COUNT 560 K/MM3 (134-434); RBC 4.16 M/mm3 (4.00-5.60); RDW 13.7 % (11.9-15.9); WHITE BLOOD COUNT 15.7 K/mm3 (4.0-10.0)
[2020-06-20 08:42] LABS: BLOOD UREA NITROGEN 16.6 mg/dL (7-18)
[2020-06-20 08:43] LABS: CALCIUM 8.3 mg/dL (8.5-10.1); MAGNESIUM 2.1 mg/dL (1.8-2.4)
[2020-06-20 08:46] LABS: CREATININE 0.8 mg/dL (0.55-1.3)
[2020-06-20 08:47] LABS: PHOSPHOROUS 3.9 mg/dL (2.5-4.9)
[2020-06-20 08:48] LABS: BILIRUBIN,TOTAL 0.4 mg/dL (0.2-1); TOT PROT 6.6 g/dl (6.4-8.2)
[2020-06-20] MEDS: ENOXAPARIN NA (PORCINE) 80 MG/0.8 ML DISP.SYRIN SQ SCH ×2 (10:04→21:05)
[2020-06-20] MEDS: ZINC SULFATE 220 MG CAPSULE (FP) PO SCH (10:04)
[2020-06-20] MEDS: CHOLECALCIFEROL (VIT D3) 1,000 UNIT (25 MCG) TABLET PO SCH (10:04)
[2020-06-20] MEDS: ASCORBIC ACID 500 MG TABLET (FP) PO SCH ×2 (10:05→21:02)
[2020-06-20] MEDS: DEXAMETHASONE SOD PHOSPHATE 4 MG/1 ML VIAL IVPUSH SCH (10:05)
[2020-06-20] MEDS: FAMOTIDINE 20 MG TABLET PO SCH ×2 (10:05→21:05)
[2020-06-20 10:58] LABS: ERYTHROCYTE SEDIMENTATION RATE 56 mm/hr (0-10)
[2020-06-20] MEDS: BUDESONIDE/FORMETEROL FUMARATE 160/4.5 mcg INHALER IH SCH ×2 (11:14→21:06)
[2020-06-20] MEDS: guaiFENesin 200 MG/10 ML 10 ML UNIT-DOSE CUPS PO PRN ×3 (11:15→21:05)
[2020-06-20] MEDS: MELATONIN 5 MG TABLETS PO PRN (21:05)
[2020-06-21] MEDS: MELATONIN 5 MG TABLETS PO PRN ×2 (05:09→21:39)
[2020-06-21 08:12] LABS: HEMATOCRIT 38.8 % (35.4-49); HEMOGLOBIN 12.8 GM/dL (11.7-16.9); MCH 30.2 pg (25.7-33.7); MEAN CELL VOLUME 91.3 fl (80-96); MEAN PLT VOLUME 8.4 fl (7.5-11.1); PLATELET COUNT 554 K/MM3 (134-434); RBC 4.25 M/mm3 (4.00-5.60); RDW 13.9 % (11.9-15.9)
[2020-06-21 08:46] LABS: BLOOD UREA NITROGEN 15.3 mg/dL (7-18); MAGNESIUM 2.3 mg/dL (1.8-2.4)
[2020-06-21 08:49] LABS: CALCIUM 9.2 mg/dL (8.5-10.1); CREATININE 0.8 mg/dL (0.55-1.3)
[2020-06-21] MEDS: DEXAMETHASONE 4 MG TABLET (FP) PO SCH (09:18)
[2020-06-21] MEDS: BUDESONIDE/FORMETEROL FUMARATE 160/4.5 mcg INHALER IH SCH ×2 (09:19→21:45)
[2020-06-21] MEDS: CHOLECALCIFEROL (VIT D3) 1,000 UNIT (25 MCG) TABLET PO SCH (09:19)
[2020-06-21] MEDS: ZINC SULFATE 220 MG CAPSULE (FP) PO SCH (09:19)
[2020-06-21] MEDS: ASCORBIC ACID 500 MG TABLET (FP) PO SCH ×2 (09:19→21:40)
[2020-06-21] MEDS: ENOXAPARIN NA (PORCINE) 80 MG/0.8 ML DISP.SYRIN SQ SCH ×2 (09:19→21:39)
[2020-06-21] MEDS: FAMOTIDINE 20 MG TABLET PO SCH ×2 (09:19→21:39)
[2020-06-21] MEDS ORDERED: PT OWN MED DRAWER 7, Y5N ONE ×2 (13:36→21:25)
[2020-06-21] MEDS: guaiFENesin 200 MG/10 ML 10 ML UNIT-DOSE CUPS PO PRN ×2 (13:47→21:47)
[2020-06-22] MEDS: guaiFENesin 200 MG/10 ML 10 ML UNIT-DOSE CUPS PO PRN ×2 (07:01→22:30)
[2020-06-22] MEDS ORDERED: PT OWN MED DRAWER 7, Y5N ONE ×2 (07:04→12:22)
[2020-06-22 08:35] LABS: HEMOGLOBIN 12.6 GM/dL (11.7-16.9); MCH 30.5 pg (25.7-33.7); MCHC 33.2 g/dl (32.0-35.9); MEAN PLT VOLUME 8.8 fl (7.5-11.1); PLATELET COUNT 489 K/MM3 (134-434); RBC 4.13 M/mm3 (4.00-5.60); RDW 14.1 % (11.9-15.9); WHITE BLOOD COUNT 13.4 K/mm3 (4.0-10.0)
[2020-06-22 08:53] LABS: CHLORIDE 105 mmol/L (98-107); SODIUM 140 mmol/L (136-145)
[2020-06-22 09:00] LABS: ALBUMIN 3.2 g/dl (3.4-5.0); ANION GAP 11 MMOL/L (8-16); BLOOD UREA NITROGEN 15.5 mg/dL (7-18); CALCIUM 9.1 mg/dL (8.5-10.1); CO2 24 mmol/L (21-32)
[2020-06-22 09:01] LABS: GLUCOSE,RANDOM 115 mg/dL (74-106); MAGNESIUM 2.2 mg/dL (1.8-2.4)
[2020-06-22 09:03] LABS: CREATININE 0.8 mg/dL (0.55-1.3); SGOT/AST 14 U/L (15-37); SGPT/ALT 60 U/L (13-61)
[2020-06-22 09:04] LABS: LDH 206 U/L (87-246); PHOSPHOROUS 3.6 mg/dL (2.5-4.9)
[2020-06-22] MEDS: ZINC SULFATE 220 MG CAPSULE (FP) PO SCH (09:04)
[2020-06-22] MEDS: DEXAMETHASONE 4 MG TABLET (FP) PO SCH (09:04)
[2020-06-22] MEDS: ASCORBIC ACID 500 MG TABLET (FP) PO SCH ×2 (09:04→21:23)
[2020-06-22 09:05] LABS: BILIRUBIN,TOTAL 0.6 mg/dL (0.2-1); TOT PROT 6.6 g/dl (6.4-8.2)
[2020-06-22] MEDS: ENOXAPARIN NA (PORCINE) 80 MG/0.8 ML DISP.SYRIN SQ SCH ×2 (09:05→21:22)
[2020-06-22 09:06] LABS: ALK PHOS 74 U/L (45-117)
[2020-06-22] MEDS: CHOLECALCIFEROL (VIT D3) 1,000 UNIT (25 MCG) TABLET PO SCH (09:06)
[2020-06-22] MEDS: BUDESONIDE/FORMETEROL FUMARATE 160/4.5 mcg INHALER IH SCH ×2 (09:06→22:30)
[2020-06-22] MEDS: FAMOTIDINE 20 MG TABLET PO SCH ×2 (09:06→21:22)
[2020-06-22 10:41] LABS: ERYTHROCYTE SEDIMENTATION RATE 45 mm/hr (0-10)
[2020-06-22] MEDS: MELATONIN 5 MG TABLETS PO PRN (21:23)
[2020-06-23] MEDS: guaiFENesin 200 MG/10 ML 10 ML UNIT-DOSE CUPS PO PRN (02:54)
[2020-06-23 08:17] LABS: HEMATOCRIT 37.7 % (35.4-49); HEMOGLOBIN 12.6 GM/dL (11.7-16.9); MCH 30.6 pg (25.7-33.7); MCHC 33.6 g/dl (32.0-35.9); MEAN CELL VOLUME 91.1 fl (80-96); MEAN PLT VOLUME 8.9 fl (7.5-11.1); PLATELET COUNT 478 K/MM3 (134-434); RBC 4.14 M/mm3 (4.00-5.60); WHITE BLOOD COUNT 14.4 K/mm3 (4.0-10.0)
[2020-06-23 08:35] LABS: CHLORIDE 104 mmol/L (98-107); POTASSIUM 3.9 mmol/L (3.5-5.1); SODIUM 139 mmol/L (136-145)
[2020-06-23 08:44] LABS: CALCIUM 9.2 mg/dL (8.5-10.1)
[2020-06-23 08:45] LABS: ALBUMIN 3.2 g/dl (3.4-5.0); ANION GAP 13 MMOL/L (8-16); BLOOD UREA NITROGEN 16.3 mg/dL (7-18); CO2 22 mmol/L (21-32); GLUCOSE,RANDOM 146 mg/dL (74-106); MAGNESIUM 2.2 mg/dL (1.8-2.4)
[2020-06-23 08:47] LABS: CREATININE 0.9 mg/dL (0.55-1.3); PHOSPHOROUS 4.1 mg/dL (2.5-4.9); SGOT/AST 14 U/L (15-37); SGPT/ALT 62 U/L (13-61)
[2020-06-23 08:48] LABS: BILIRUBIN,TOTAL 1.1 mg/dL (0.2-1); LDH 223 U/L (87-246); TOT PROT 6.7 g/dl (6.4-8.2)
[2020-06-23 08:51] LABS: ALK PHOS 72 U/L (45-117)
[2020-06-23] MEDS: ASCORBIC ACID 500 MG TABLET (FP) PO SCH (09:07)
[2020-06-23] MEDS: ZINC SULFATE 220 MG CAPSULE (FP) PO SCH (09:07)
[2020-06-23] MEDS: ENOXAPARIN NA (PORCINE) 80 MG/0.8 ML DISP.SYRIN SQ SCH (09:07)
[2020-06-23] MEDS: CHOLECALCIFEROL (VIT D3) 1,000 UNIT (25 MCG) TABLET PO SCH (09:07)
[2020-06-23] MEDS: DEXAMETHASONE 4 MG TABLET (FP) PO SCH (09:07)
[2020-06-23] MEDS: FAMOTIDINE 20 MG TABLET PO SCH (09:07)
[2020-06-23] MEDS: BUDESONIDE/FORMETEROL FUMARATE 160/4.5 mcg INHALER IH SCH (09:08)
[2020-06-23 09:17] LABS: ERYTHROCYTE SEDIMENTATION RATE 39 mm/hr (0-10)
[2020-06-23 15:26] VITALS: BP 150/95; PULSE 101; TEMP 98.1
== END 2020-06-23 17:38 | disposition home or self-care (01) | DRG 137 ==
LOC: JER 20:45 → JERBED 23:20 → J8W 06-05 03:17
PROVIDERS: ADMIT Hospitalist; ATTEND Internal Medicine
PROC: XW033E5 Introduction of Remdesivir Anti-infective into Peripheral Vein, Percutaneous Approach, New Technology Group 5 (ICD-10-PCS; principal; 2020-06-05)
PROC: XW13325 Transfusion of Convalescent Plasma (Nonautologous) into Peripheral Vein, Percutaneous Approach, New Technology Group 5 (ICD-10-PCS; 2020-06-05)
DX: U07.1 COVID-19 (principal); J96.01 Acute respiratory failure with hypoxia; J12.82 Pneumonia due to coronavirus disease 2019; E66.9 Obesity, unspecified; Z68.34 Body mass index [BMI] 34.0-34.9, adult; D47.3 Essential (hemorrhagic) thrombocythemia; R80.9 Proteinuria, unspecified; E11.9 Type 2 diabetes mellitus without complications; G47.33 Obstructive sleep apnea (adult) (pediatric)
CPT/HCPCS: 36415; 36430; 71045-TC-FY; 80048; 80053; 81003; 82248; 82550; 82553; 82728; 83036; 83605; 83615; 83735; 84100; 84484; 85025; 85027; 85379; 85384; 85610; 85651; 85730; 86140; 86850; 86900; 86901; 87040; 87086; 87804; 87899; 93005; 93010; 94010; 94761; 99285-25; C9399; C9803; J0131; P9017; U0003

== ENCOUNTER 2022-09-04 13:33 | Emergency (ER) | payer OTHER ==
[2022-09-04 13:46] VITALS: BMI 34.8
[2022-09-04] MEDS ORDERED: ACETAMINOPHEN 500 MG TABLET (FP) PO ONE (15:08)
[2022-09-04] MEDS ORDERED: ACETAMINOPHEN 325 MG TABLET (FP) ONE (15:34)
[2022-09-04 16:31] LABS: EOS % 1.4 % (0-4.5); HEMATOCRIT 43.6 % (35.4-49); HEMOGLOBIN 14.6 GM/dL (11.7-16.9); LYMPH % 39.2 % (8-40); MCH 29.9 pg (25.7-33.7); MCHC 33.6 g/dl (32.0-35.9); MEAN CELL VOLUME 88.9 fl (80-96); MEAN PLT VOLUME 9.1 fl (7.5-11.1); MONO % 9.1 % (3.8-10.2); NEUT % 49.3 % (42.8-82.8); PLATELET COUNT 345 10^3/uL (134-434); RDW 13.1 % (11.9-15.9); WHITE BLOOD COUNT 8.9 K/mm3 (4.0-10.0)
[2022-09-04 16:46] LABS: URINE APPEARANCE CLEAR; URINE BILIRUBIN NEGATIVE (NEGATIVE); URINE COLOR YELLOW; URINE GLUCOSE (UA) NEGATIVE (NEGATIVE); URINE KETONE NEGATIVE (NEGATIVE); URINE LEUK ESTERASE NEGATIVE (NEGATIVE); URINE NITRITE NEGATIVE (NEGATIVE); URINE PROTEIN NEGATIVE (NEGATIVE); URINE UROBILINOGEN 0.2 mg/dL (0.2-1.0)
[2022-09-04 16:54] LABS: BLOOD UREA NITROGEN 13.7 mg/dL (7-18); CALCIUM 9.6 mg/dL (8.5-10.1)
[2022-09-04 16:58] LABS: CREATININE 0.9 mg/dL (0.55-1.3)
[2022-09-04 16:59] LABS: TOT PROT 7.6 g/dl (6.4-8.2)
[2022-09-04 17:00] LABS: BILIRUBIN,TOTAL 0.5 mg/dL (0.2-1)
[2022-09-04 18:27] VITALS: BP 126/74; PULSE 75; RESP 15; TEMP 97.7
== END 2022-09-04 19:08 | disposition home or self-care (01) ==
LOC: JER 13:33
DX: R10.9 Unspecified abdominal pain (principal); M54.9 Dorsalgia, unspecified; Z20.822 Contact with and (suspected) exposure to COVID-19
CPT/HCPCS: 0241U-QW; 36415; 71046-TC-FY; 74177-TC; 80053; 81003; 83690; 85025; 87086; 93005; 93010; 99285-25; Q9967